=== PATIENT | male | born 2000 | race Caucasian/White ===

== ENCOUNTER → 2020-01-07 15:05 | Outpatient (BNVA) | payer BC, OTHER, SELFPAY | PROVIDERS: PCP Family Medicine; Visit Provider Pediatrics Adolescent Medicine | DX: N39.0 Urinary tract infection, site not specified (principal) | CPT/HCPCS: 81000 ==

== ENCOUNTER 2020-01-29 07:03 | Outpatient (CLI) | payer BC, SELFPAY ==
--- NOTE | 2020-01-29 07:15 | US_ITS ---
WS: [id number] TESTICULAR ULTRASOUND HISTORY: evaluate left testicle, spermatic cord, scrotum COMPARISON: None available. TECHNIQUE: Real-time and color Doppler imaging or utilized to perform a testicular ultrasound. Right testicle: 4.8 cm x 3.2 cm x 2.3 cm. Normal size and echogenicity. No mass or torsion. Normal color Doppler is present throughout. Systolic and diastolic velocities are both present. No significant hydrocele. Right epididymis: Normal epididymis with no increased vascularity. Left testicle: 5.1 cm x 3.2 cm x 2.0 cm. Normal size and echogenicity. No mass or torsion. Normal color Doppler is present throughout. Systolic and diastolic velocities are both present. No significant hydrocele. Left epididymis: Normal epididymis with no increased vascularity. Patient directed office equipment mechanic to the area of pain which is along the spermatic cord. No abnormality is identified by ultrasound. US/US scrotum [id number] IMPRESSION: NORMAL TESTICULAR ULTRASOUND.
== END 2020-01-29 07:04 | disposition home or self-care (01) ==
PROVIDERS: PCP Family Medicine; Visit Provider Pediatrics Adolescent Medicine
DX: N50.812 Left testicular pain (principal)
CPT/HCPCS: 76870